=== PATIENT | male | born 1975 | race Two or more races ===

== ENCOUNTER → 2024-02-19 | Outpatient (CLI) | payer BC, SELFPAY ==
[2024-02-19 10:35] LABS: Basophils # (Auto) 0.1 Thou/mm3 (0.0-0.2); Basophils % (Auto) 1 % (0-2.5); Eosinophils # (Auto) 0.4 Thou/mm3 (0.0-0.5); Eosinophils % (Auto) 5 % (0-10); Hematocrit 46.3 % (41.0-53.0); Hemoglobin 16.2 g/dL (13.5-16.0); Immature Granulocytes % (Auto) 0 % (0-0); Immature Granulocytes Auto 0.02 Thou/mm3 (0.00-0.00); Lymphocytes # (Auto) 3.2 Thou/mm3 (1.0-4.8); Lymphocytes % (Auto) 40 % (10-50); Mean Corpuscular Hemoglobin 31.5 pg (25.0-35.0); Mean Corpuscular Volume 90 fL (80-100); Monocytes # (Auto) 0.4 Thou/mm3 (0.0-0.8); Monocytes % (Auto) 6 % (0-12); Neutrophils # (Auto) 3.7 Thou/mm3 (1.8-7.7); Neutrophils % (Auto) 48 % (37-80); Nucleated Red Blood Cell % 0 /100 WBC (0); Platelet Count 196 Thou/mm3 (140-440); RDW Standard Deviation 42.9 fL (35.1-43.9); Red Blood Count 5.14 Miln/mm3 (4.50-5.90); White Blood Count 7.9 Thou/mm3 (3.8-10.6)
[2024-02-19 10:44] LABS: Lithium 0.51 mEq/L (1.00-1.20)
[2024-02-19 10:45] LABS: Glucose Estimated Average 111 mg/dL (80-131); Hemoglobin A1C 5.5 % Hgb (4.8-6.0)
[2024-02-19 10:52] LABS: Alanine Aminotransferase 39 U/L (10-49); Albumin, Serum 4.4 gm/dL (3.5-5.0); Albumin/Globulin Ratio 1.4 (1.2-2.2); Alkaline Phosphatase 96 U/L (46-116); Anion Gap 6 (7-16); Aspartate Amino Transferase 16 U/L (0-34); BUN/Creatinine Ratio 10 Ratio (12-20); Bilirubin,Total 0.7 mg/dL (0.3-1.2); Blood Urea Nitrogen 10 mg/dL (9-23); Calcium 9.7 mg/dL (8.3-10.6); Calcium (Corrected) 9.7 mg/dL (8.5-10.1); Carbon Dioxide 29.4 mMol/L (20.0-31.0); Chloride 104 mMol/L (98-107); Globulin 3.2 gm/dL (2.3-3.5); Glucose 115 mg/dL (74-106); Osmolality,Calculated 277 (275-295); Potassium 3.9 mMol/L (3.4-5.1); Sodium 139 mMol/L (136-145); Total Protein 7.6 gm/dL (5.7-8.2); eGFR > 60 See Note
[2024-02-19 10:54] LABS: Amphetamine/Methamp Scrn,U Negative (Negative); Barbiturate Screen,Urine Negative (Negative); Benzodiazepines Screen,Urine Positive (Negative); Benzoylecgonine Screen, Ur Negative (Negative); Fentanyl Screen,Urine Negative (Negative); Opiate Screen,Urine Negative (Negative); THC Screen,Urine Positive (Negative)
== END | disposition home or self-care (01) ==
LOC: COPL 08:56
PROVIDERS: PCP Family Medicine; Referring Provider Family Medicine; Visit Provider Family Medicine
DX: E11.65 Type 2 diabetes mellitus with hyperglycemia (principal); Z79.891 Long term (current) use of opiate analgesic
CPT/HCPCS: 36415; 80053; 80178; 80307; 83036; 85025

== ENCOUNTER → 2024-07-02 | Outpatient (CLI) | payer BC, SELFPAY ==
--- NOTE | 2024-07-02 15:50 | XR_ITS ---
Examination: Duplex scan of the upper extremity, unilateral left Date and time of exam: July 02, 2024 1600 hours INDICATIONS: Palpable lump in the left upper arm with swelling and pain today Technique: Duplex scan of the extremity veins using B-mode/grayscale imaging and Doppler spectral analysis and color flow Attention is directed to internal echogenicity, compression and augmentation involving these veins, color flow assessment, spectral analysis Findings: Positive for nonocclusive thrombus in the left subclavian left axillary veins Also positive for thrombus in the superficial basilic vein IMPRESSION: Positive for nonocclusive thrombus in the left subclavian left axillary vein, the patient by history is anticoagulated, consider one to two-week follow-up left upper extremity venous Doppler study
== END | disposition home or self-care (01) ==
PROVIDERS: PCP Family Medicine; Referring Provider Family Medicine; Visit Provider Family Medicine
DX: I82.890 Acute embolism and thrombosis of other specified veins (principal)
CPT/HCPCS: 93971

== ENCOUNTER → 2024-07-03 | Outpatient (CLI) | payer BC, SELFPAY ==
[2024-07-03 11:55] LABS: Cardiac Risk Estimate 3.3 RATIO (4.0-6.7); Cholesterol 130 mg/dL (132-200); HDL Cholesterol 40 mg/dL (40-60); LDL Cholesterol,Calculated 70 mg/dL (0-130); Triglycerides 100 mg/dL (30-150)
== END | disposition home or self-care (01) ==
LOC: COPL 10:42
PROVIDERS: PCP Family Medicine; Referring Provider Family Medicine; Visit Provider Family Medicine
DX: I82.812 Embolism and thrombosis of superficial veins of left lower extremity (principal)
CPT/HCPCS: 36415; 80061

== ENCOUNTER → 2024-08-05 | Outpatient (CLI) | payer BC, SELFPAY ==
--- NOTE | 2024-08-05 11:16 | XR_ITS ---
Examination: Duplex scan of the upper extremity, unilateral left Date and time of exam: August 05, 2024 1121 hours INDICATIONS: Positive venous Doppler 03/03/2024 nonocclusive thrombus left subclavian left axillary vein, patient is anticoagulated Technique: Duplex scan of the extremity veins using B-mode/grayscale imaging and Doppler spectral analysis and color flow Attention is directed to internal echogenicity, compression and augmentation involving these veins, color flow assessment, spectral analysis Findings: Major deep venous structures in the extremity demonstrate normal course and caliber. There is no evidence of deep vein thrombosis. Normal color flow and spectral analysis Impression: Negative for DVT..
== END | disposition home or self-care (01) ==
PROVIDERS: PCP Family Medicine; Referring Provider Family Medicine; Visit Provider Family Medicine
DX: R22.32 Localized swelling, mass and lump, left upper limb (principal)
CPT/HCPCS: 93971